=== PATIENT | female | born 1940 | race Caucasian/White ===

== ENCOUNTER → 2019-03-08 | Outpatient (CLI) | payer MEDICARE ==
--- NOTE | 2019-03-08 14:44 | BD ---
EXAMINATION TYPE: Axial Bone Density DATE OF EXAM: 03/08/2019 COMPARISON: NONE CLINICAL HISTORY: Postmenopausal female Height: 5 FT 4 IN Weight: 160 FRAX RISK QUESTIONS: RISK FACTORS HISTORY OF: Postmenopausal woman: AGE 50-52 Lost more than 2 inches in height since high school: YES Poor Health: FAIR MEDICATIONS: Thyroid Medications: YES Which medication: LEVOTHYROXINE How Long: APPRX 20 YEARS Additional Medications: LEVOTHYROXINE, CHOLESTEROL MEDS, LOSARTIN, METOPROLOL, AMLODIPINE, ALOPURINOL , BABY ASPIRIN Additional History: EXAM MEASUREMENTS: Bone mineral densitometry was performed using the [employer]. Bone mineral density as measured about the Lumbar spine is: ----- L1-L4(G/cm2): 1.219 T Score Values are as follows: ----- L2: -0.1 ----- L3: 0.8 ----- L4: 1.0 ----- L1-L4: 0.3 BASELINE Bone mineral density about the R hip (g/cm2): 0.701 Bone mineral density about the L hip (g/cm2): 0.828 T Score values are as follows: -----R Neck: -2.4 -----L Neck: -1.5 -----R Total: -2.6 -----L Total: -1.9 BASELINE IMPRESSION: Osteoporosis (T Score less than -2.5). There is increased fracture risk and therapy is usually indicated based on age. Re-Screen 1-2 years. NOTE: T-SCORE=SD OF THE YOUNG ADULT MEAN.
== END | disposition home or self-care (01) ==
LOC: RADBDWWP 12:51
PROVIDERS: ATTEND Internal Medicine
DX: M81.0 Age-related osteoporosis without current pathological fracture (principal)
CPT/HCPCS: 77080

== ENCOUNTER → 2019-10-10 | Outpatient (CLI) | payer MEDICARE ==
[~2019-10-10] MED LIST: DOBUTamine DRIP for NUC MED 500 MG in DEXTROSE/WATER 1 250ML.BAG IV ONE
--- NOTE | 2019-10-10 13:29 | ECHOS ---
STRESS ECHOCARDIOGRAM DATE OF SERVICE: 10/10/2019 INDICATIONS: Chest pain. MEDICATIONS: BASELINE HEART RATE: 75 BASELINE BLOOD PRESSURE: 173/57 MAXIMUM HEART RATE: 121 MAXIMUM BLOOD PRESSURE: 173/57 85% MPHR: 118 100% MPHR: 139 METS: MAXIMUM STAGE REACHED: TOTAL EXERCISE TIME: CLINICAL INFORMATION: The patient was given dobutamine infusion according to the standard protocol. Peak heart rate of 121 was achieved. The patient developed mild hypotension in the immediate post dobutamine infusion and subsequently blood pressure came back to the normal. The resting EKG shows normal sinus rhythm with QRS morphology suggestive of right bundle branch block pattern was noted. During dobutamine infusion, no ST-segment depression suggestive of ischemia was noted. Occasional PVCs were noted. The baseline echocardiographic images reveals normal left ventricular chamber size with normal left ventricular systolic function. At the peak dose of dobutamine infusion, normal increase in the wall thickness and contractility is noted. FINAL IMPRESSION: 1. This patient's dobutamine stress echocardiographic study is negative for stress- induced ischemia. 2. The patient developed mild hypotension at the peak dose of dobutamine infusion. 3. EKG portion of the stress test is not suggestive of ischemia. MMODL / IJN: [id number] /
== END ==
LOC: RADNMMAIN 08:45
PROVIDERS: ATTEND Internal Medicine
DX: I95.9 Hypotension, unspecified (principal); I10 Essential (primary) hypertension
CPT/HCPCS: 93351; J1250

== ENCOUNTER → 2021-08-06 | Outpatient (CLI) | payer MEDICARE ==
--- NOTE | 2021-08-07 02:02 | US ---
EXAMINATION TYPE: US carotid duplex BILAT DATE OF EXAM: 08/06/2021 COMPARISON: NONE CLINICAL HISTORY: I635.23 Bilateral carotid artery stenosis. Weakness EXAM MEASUREMENTS: RIGHT: Peak Systolic Velocity (PSV) cm/sec ----- Right CCA: 126 ----- Right ICA: 192 ----- Right ECA: 281 ICA/CCA ratio: 1.5 RIGHT: End Diastole cm/sec ----- Right CCA: 17.6 ----- Right ICA: 30.0 ----- Right ECA: 39.8 LEFT: Peak Systolic Velocity (PSV) cm/sec ----- Left CCA: 103 ----- Left ICA: 254 ----- Left ECA: 295 ICA/CCA ratio: 2.5 LEFT: End Diastole cm/sec ----- Left CCA: 14.0 ----- Left ICA: 34.5 ----- Left ECA: 53.2 VERTEBRALS (direction of flow): Right Vertebral: Antegrade Left Vertebral: Antegrade Rhythm: Normal Heterogeneous plaque bilaterally with elevated velocities bilaterally IMPRESSION: 1. Flow parameters suggestive of left internal carotid artery stenosis of 50-69%, with peak systolic velocity suggestive of greater than 70% stenosis. 2. Flow parameters suggest of no hemodynamically significant stenosis of the right internal carotid a rtery, with peak systolic velocity suggestive of 50-69% stenosis. 3. CTA of the neck could be obtained for more definitive evaluation. Criteria for Assigning % of Stenosis / Diameter reduction (Estimation based on the indirect measurements of the internal carotid artery velocities (ICA PSV). 1. Normal (no stenosis)=ICA PSV < 125 cm/s: ratio < 2.0: ICA EDV<40 cm/s. 2. Less than 50% stenosis=ICA PSV < 125 cm/s: ratio < 2.0: ICA EDV<40 cm/s. 3. 50 to 69% stenosis=ICA PSV of 125 to 230 cm/s: ration 2.0 ? 4.0: ICA EDV 40-100 cm/s. 4. Greater than 70% stenosis to near occlusion= ICA PSV > 230 cm/s: ratio > 4.0: ICA EDV > 100 cm/s. 5. Near occlusion= ICA PSV velocities may be low or undetectable: variable ratio and ICA EDV. 6. Total occlusion=unable to detect flow.
== END | disposition home or self-care (01) ==
LOC: RADUSWWP 16:06
PROVIDERS: ATTEND Internal Medicine
DX: I65.23 Occlusion and stenosis of bilateral carotid arteries (principal)
CPT/HCPCS: 93880

== ENCOUNTER → 2023-03-30 | Outpatient (CLI) | payer MEDICARE ==
--- NOTE | 2023-04-01 08:56 | CT ---
EXAMINATION TYPE: CT chest wo con DATE OF EXAM: 03/30/2023 COMPARISON: Radiograph 03/05/2023 HISTORY: 83-year-old female R91.8, prior abnormal exam- lung field TECHNIQUE: Contiguous axial scanning of the chest without IV contrast. Coronal and sagittal reconstru ctions performed. CT DLP: 195.0 mGycm Automated exposure control for dose reduction was used. FINDINGS: Bulky, enlarged, poorly defined thyroid gland. Further thyroid ultrasound evaluation can be performed . Heart upper limits of normal in size without pericardial effusion. LAD coronary artery calcifications are present. Borderline ectatic ascending aorta 3.5 cm. Moderate atherosclerotic arch calcifications. Possible mod erate or severe atherosclerotic narrowing at the origin of the left subclavian artery. Large caliber to the main right and left pulmonary arteries measuring up to 2.6 cm each suggesting un derlying pulmonary hypertension. Scattered nonenlarged mediastinal lymph nodes. Calcified AP window lymph node compatible with prior g ranulomatous disease. No thoracic lymph adenopathy by CT size criteria. There is moderate to advanced emphysematous changes especially in the upper and midlungs. Focal masslike area of consolidation posterior right lower lobe measuring up to 3.8 cm and abutting t he pleural surface. There are some associated calcifications in this area and some adjacent patchy op acity extending into the superior segment right lower lobe. A 7 mm pulmonary nodule right mid lung along the major fissure likely represents an intrafissural lym ph node. A few punctate calcific granulomas noted within the right lower lobe. No pleural effusion. Tiny hiatal hernia. Moderate to severe arthritic changes continue into the visualized upper abdominal aorta. Mild thickening of the right adrenal gland without discrete nodularity. Bones: Slightly exaggerated mid thoracic kyphosis with anterior endplate spondylosis lower thoracic s pine. IMPRESSION: 1. COPD WITH MODERATE TO ADVANCED EMPHYSEMA. PULMONARY ARTERIAL HYPERTENSION. EVIDENCE OF PRIOR GRAN ULOMATOUS DISEASE. 2. FOCAL MASSLIKE AREA OF CONSOLIDATION POSTERIOR RIGHT LOWER LOBE MEASURING 3.8 CM AND ABUTTING THE PLEURAL SURFACE. DIFFERENTIAL CONSIDERATIONS GIVEN THE PERSISTENCE INCLUDE LUNG CANCER. ATYPICAL FUN GAL/MYCOBACTERIAL INFECTIONS ARE ALSO IN THE DIFFERENTIAL. ROUNDED ATELECTASIS IS ALSO POSSIBLE BUT F ELT TO BE LESS LIKELY. CONVENTIONAL PNEUMONIA UNLIKELY GIVEN THE PERSISTENCE. CLINICALLY CORRELATE. 3. FURTHER THYROID ULTRASOUND EVALUATION FOR THE BULKY, ENLARGED, POORLY DEFINED THYROID GLAND.
== END | disposition home or self-care (01) ==
LOC: RADCTMAIN 15:45
PROVIDERS: ATTEND Internal Medicine
DX: C34.31 Malignant neoplasm of lower lobe, right bronchus or lung (principal); I27.21 Secondary pulmonary arterial hypertension; J43.9 Emphysema, unspecified; D71 Functional disorders of polymorphonuclear neutrophils; R91.8 Other nonspecific abnormal finding of lung field
CPT/HCPCS: 71250

== ENCOUNTER 2023-05-04 08:46 | Day surgery (SDC) | payer MEDICARE ==
[2023-05-04] MEDS ORDERED: ALPRAZolam 0.25 MG TAB PO PRN (09:01)
[2023-05-04] MEDS ORDERED: HYDROmorphone 0.5 MG/0.5 ML SYRINGE IVP PRN (09:01)
[2023-05-04 09:45] LABS: Mean Platelet Volume 7.6; Platelet Count 243 k/uL (150-450)
[2023-05-04 09:53] VITALS: TEMP 97.7
[2023-05-04 10:31] LABS: Prothrombin Time 10.5 sec (9.0-12.0)
--- NOTE | 2023-05-04 11:49 | XR ---
EXAMINATION TYPE: XR chest 1V portable DATE OF EXAM: 05/04/2023 COMPARISON: 03/30/2023, 03/05/2023 HISTORY: Postlung biopsy TECHNIQUE: Single frontal view of the chest is obtained. FINDINGS: No sizable pneumothorax. Diffuse emphysematous changes cardiomegaly and atherosclerotic ch terrence aorta. Mass in the right lower lobe noted. There are subsegmental changes at the right lung base most likely atelectasis or bronchiectasis. Calcified granuloma noted. Hypertrophic and degenerative changes spine. Calcifications along the medial margin of the right upper lobe likely vascular. IMPRESSION: 1. No pneumothorax. 2. Right lung mass. 3. COPD.
--- NOTE | 2023-05-04 12:30 | CT ---
EXAMINATION TYPE: CT biopsy lung RT DATE OF EXAM: 05/04/2023 COMPARISON: 03/30/2023 HISTORY: Right lung mass CT DLP: 18.53 mGycm The procedure is discussed with the patient, the risks, complications, benefits and alternatives, wer e discussed and any questions were answered. Informed consent was obtained. The patient is placed p herminio on the CT table, prepped and draped in the usual sterile fashion. Utilizing a 20-gauge core biopsy needle access into the right posterior lower lobe mass was achieved with single 20-gauge core sample obtained. Pathology confirmed adequate sample. All elements of max imal barrier technique were utilized. The patient remained stable throughout the procedure with no i mmediate postprocedural complication. IMPRESSION: 1. Successful CT guided fine needle aspiration of a right lower lobe lobe lung mass
--- NOTE | 2023-05-04 13:52 | XR ---
EXAMINATION TYPE: XR chest 1V portable DATE OF EXAM: 05/04/2023 COMPARISON: 05/04/2023 HISTORY: Postlung biopsy TECHNIQUE: Single frontal view of the chest is obtained. FINDINGS: There is no focal air space opacity, pleural effusion, or pneumothorax seen. The cardiac silhouette size is within normal limits. The osseous structures are intact. Calcified granuloma not ed in the right lower lobe lung mass. Heart is mildly enlarged with atherosclerotic change aorta. Art hropathy of the shoulder. IMPRESSION: 1. No evidence of pneumothorax. 2. Right lung mass. 3. COPD.
[2023-05-04 18:07] VITALS: RESP 16
[2023-05-04 18:10] VITALS: BP 139/67; PULSE 81
== END 2023-05-04 14:27 | disposition home or self-care (01) ==
LOC: RADPROMAIN 08:46
PROVIDERS: ATTEND Internal Medicine
DX: C34.31 Malignant neoplasm of lower lobe, right bronchus or lung (principal); J44.9 Chronic obstructive pulmonary disease, unspecified; C18.9 Malignant neoplasm of colon, unspecified; C44.90 Unspecified malignant neoplasm of skin, unspecified
CPT/HCPCS: 32408; 36415; 71045; 85049; 85610; 88305; 88342

== ENCOUNTER → 2023-07-27 | Outpatient (CLI) | payer MEDICARE ==
--- NOTE | 2023-08-03 17:33 | CT ---
EXAMINATION TYPE: CT chest wo con DATE OF EXAM: 07/27/2023 COMPARISON: 05/04/2023, PET/CT 04/10/2023 HISTORY: f/u 1 month post radiation tx CT DLP: 199.9 mGycm, Automated exposure control for dose reduction was used. CONTRAST: Performed injected with 0 mL of Isovue 300. TECHNIQUE: Axial images were obtained at 5 mm thick sections. Reconstructed images are reviewed on [employer] computer in the coronal plane. FINDINGS: Thyroid appears markedly enlarged and extends out of the field of view. This extends toward s the thoracic inlet. Correlate for goiter. Consider additional evaluation with ultrasound. There is a spiculated 2.2 x 2.4 cm mass posterior right lung. Series 3 image 6. This area was previou sly biopsied. Infiltrate extends along the medial posterior right lung and from this level more infer ior and lateral. Previous measurement 3.7 x 2.9 cm on PET/CT localization CT. Extensive emphysematous changes are present. There is benign-appearing calcification in the lateral right lung. Pneumatoceles at the left lung bas e. Some pulmonary fibrotic type changes are at the lung bases. No enlarged mediastinal or hilar adenopathy is evident. Few scattered small lymph nodes are present. The ascending aorta diameter at the level of the main pulmonary artery is 3.5 cm. The main pulmonar y artery diameter at the bifurcation is 3.4 cm. Coronary artery calcifications present. Limited CT sections are obtained through the upper abdomen. Dense calcifications within the aorta. No acute changes within the abdomen are evident. IMPRESSION: 1. Diminished size of a biopsied lung nodule posterior right lung
== END | disposition home or self-care (01) ==
LOC: RADCTMAIN 14:48
PROVIDERS: ATTEND Radiology Radiation Oncology
DX: C34.31 Malignant neoplasm of lower lobe, right bronchus or lung (principal); R91.1 Solitary pulmonary nodule
CPT/HCPCS: 71250

== ENCOUNTER → 2023-12-01 | Outpatient (CLI) | payer MEDICARE ==
--- NOTE | 2023-12-01 14:30 | CT ---
Exam: CT Chest without contrast. Date: 12/01/2023. Comparison: 07/27/2023. History: Follow-up for lung cancer. Technique: CT examination of the chest was performed without contrast. Coronal and sagittal reformats were performed. CT dose lowering techniques were used, to include: automated exposure control, adjus tment for patient size, and/or use of iterative reconstruction. FINDINGS: Mediastinum and Ignacia: There is no axillary, mediastinal or hilar lymphadenopathy. Pleural and Pericardial spaces: There are no pleural or pericardial effusions. Upper Abdomen: The visualized upper abdomen is unremarkable. Cardiovascular: There is severe vascular calcification throughout the thoracic aorta without evidence of aneurysmal dilation. Mild patchy coronary artery calcifications are seen. Lung Parenchyma and Airways: There is severe diffuse centrilobular emphysema. 3 mm right upper lobe n odule on series 4 image 18 is unchanged. There is some patchy parenchymal changes within the right lo wer lobe which are slightly more prominent than the previous examination and may relate to prior ignacio tment change. Residual or recurrent disease is difficult to entirely exclude. There is some scattered bronchial wall thickening within the right middle lobe also noted. Bones: No fracture or aggressive osseous lesion. IMPRESSION: 1. Increasing patchy parenchymal changes within the right lower lobe may relate to prior treatment ch anges. Clinical correlation is recommended. Underlying disease is difficult to exclude. Follow-up acc ording to tumor protocol. 2. Severe emphysema. 3. Additional findings as above.
== END | disposition home or self-care (01) ==
LOC: RADCTMAIN 12:35
PROVIDERS: ATTEND Radiology Radiation Oncology
DX: J43.2 Centrilobular emphysema (principal); C34.31 Malignant neoplasm of lower lobe, right bronchus or lung; J98.09 Other diseases of bronchus, not elsewhere classified; I25.10 Atherosclerotic heart disease of native coronary artery without angina pectoris; R91.1 Solitary pulmonary nodule; Z87.891 Personal history of nicotine dependence
CPT/HCPCS: 71250

== ENCOUNTER → 2023-12-10 | Outpatient (CLI) | payer MEDICARE ==
--- NOTE | 2023-12-10 11:46 | US ---
EXAMINATION TYPE: US kidneys/renal and bladder DATE OF EXAM: 12/10/2023 COMPARISON: CT 2012, CT/PET 04/10/2023 CLINICAL INDICATION: Female, 83 years old with history of N18.30 CHRONIC KIDNEY DISEASE, STAGE 3 UNSP ECIFIED; CKD, hx of renal cyst drained in 2012. EXAM MEASUREMENTS: Right Kidney: 9.8 x 4.9 x 4.0 cm Left Kidney: 10.8 x 4.3 x 4.9 cm Right Kidney: -Complex area seen upper pole: 2.4 x 1.3 x 1.4 cm. Two anechoic areas seen, larger is at mid pole: 1.8 x 1.7 x 1.5 cm. *Renal pelvis appears prominent post void. Left Kidney: -Complex area seen upper pole: 6.7 x 4.3 x 4.5 cm. -Largest anechoic area seen lower pole: 2.2 x 2.8 x 2.5 cm., additional subcentimeter anechoic areas seen. *Renal pelvis appears prominent post void. Bladder: Appears wnl Bilateral Jets seen: Yes IMPRESSION: 1. No evidence for obstructive uropathy. 2. Bilateral renal cysts. Some renal cysts appear more complicated. Consider evaluation with MRI dania al mass protocol for complete evaluation.
== END | disposition home or self-care (01) ==
LOC: RADUSWWP 10:17
PROVIDERS: ATTEND Family Medicine
DX: N28.1 Cyst of kidney, acquired (principal); N18.30 Chronic kidney disease, stage 3 unspecified
CPT/HCPCS: 76770

== ENCOUNTER → 2023-12-16 | Outpatient (CLI) | payer MEDICARE | END | disposition home or self-care (01) | LOC: LABWHC1 10:37 | PROVIDERS: ATTEND Family Medicine | DX: R73.01 Impaired fasting glucose (principal) | CPT/HCPCS: 36415; 83036 ==

== ENCOUNTER → 2024-01-04 | Outpatient (CLI) | payer MEDICARE ==
--- NOTE | 2024-01-05 11:54 | MR ---
EXAMINATION TYPE: MR kidney wo/w con DATE OF EXAM: 01/04/2024 2:50 PM CLINICAL INDICATION:Female, 83 years old with history of C44.91 N28.1, Renal cyst, Hx of lung and col on cancer COMPARISON: Ultrasound 12/10/2023, PET/CT 04/10/2023 TECHNIQUE: Multiplanar multi-sequence imaging was performed without contrast. Post contrast imaging was performed. Post IV contrast subtraction images were also submitted for review. IV Contrast: 7 cc Gadobutrol FINDINGS: LOWER CHEST: No gross irregularity. ABDOMEN Liver: No evidence for hepatic steatosis or cirrhosis. Signal dropout on chemical shift in phase imag ing. No suspicious enhancement identified. Gallbladder and Bile ducts: No evidence for ductal dilation, or biliary stricture or evidence of chol edocholithiasis. The gallbladder is within normal limits. Pancreas: No ductal dilation. No evidence for solid mass. Spleen: Normal for size. Signal dropout on chemical shift in phase imaging. Adrenal glands: Unremarkable. Kidneys: 1. No evidence for obstructive uropathy. 2. Multiple renal cysts bilaterally some which are high T2 signal on the right measuring up to 17 mm . Other cysts including a majority of the left renal cyst of lower T2 signal. Measuring up to 5.3 cm on the left hand 1.3 cm on the right. T1-weighted imaging abnormally lower density renal cysts have l ayering high T1 signal on the left as well as a cyst on the right. High T1 signal suggests proteinace ous contents/hemorrhage. 3. No suspicious solid renal neoplasms identified. Stomach and Bowel: No evidence for bowel wall thickening or evidence for obstruction. Retroperitoneum/Peritoneum: No evidence of pneumoperitoneum or free fluid. Vasculature: No aortic aneurysm. Musculoskeletal: The osseous structures appear intact. Lymph Nodes: No gross evidence for lymphadenopathy. Abdominal wall: Unremarkable. IMPRESSION: 1. 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 No suspicious solid renal neoplasms. 2. Iron deposition in the liver and spleen.
== END | disposition home or self-care (01) ==
LOC: RADMRIMAIN 12:57
PROVIDERS: ATTEND Family Medicine
DX: N28.1 Cyst of kidney, acquired (principal); C44.91 Basal cell carcinoma of skin, unspecified; K76.89 Other specified diseases of liver; D73.89 Other diseases of spleen; Z85.038 Personal history of other malignant neoplasm of large intestine; Z85.118 Personal history of other malignant neoplasm of bronchus and lung
CPT/HCPCS: 74183; A9585

== ENCOUNTER → 2024-04-04 | Outpatient (CLI) | payer MEDICARE ==
--- NOTE | 2024-04-04 12:29 | CT ---
EXAMINATION TYPE: CT chest wo con CT DLP: 229.4 mGycm, Automated exposure control for dose reduction was used. DATE OF EXAM: 04/04/2024 12:15 PM COMPARISON: CT chest 12/01/2023, 07/27/2023, 03/30/2023, PET/CT 04/10/2023. CLINICAL INDICATION:Female, 84 years old with history of C34.31 MALIGNANT NEOPLASM OF LOWER LOBE, RIG HT BRO; PHH, f/u lung cancer TECHNIQUE: Multiple axial images were obtained through the chest without IV contrast. Lack of IV or o ral contrast limits evaluation of solid and hollow organ viscera. . Coronal and sagittal reformats re viewed. FINDINGS: LUNGS/ PLEURA: [id number] diffuse centrilobular emphysematous changes. This is most prominent within the bilateral upper lobes with right greater than left. No pneumothorax or pleural effusion. Similar patchy parenchymal changes within the right lower lobe from most recent examination but have increased from previous exams. May relate to prior treatment change however residual or recurrent di sease is difficult to entirely exclude. Scattered bronchial wall thickening within the right middle l obe redemonstrated. Scattered calcified granulomas redemonstrated. This is most prominent within that parenchymal opacity within the right lower lobe. Additional parenchymal nodular changes identified w ithin the right middle lobe with similar appearance. Stable right upper lobe 3 mm pulmonary nodule (s eries 4, image 23). No new definitive pulmonary nodules. AIRWAY: Patent and unremarkable.. HEART: Mildly enlarged. No pericardial effusion. MEDIASTINUM: No evidence of adenopathy. Few calcified lymph nodes identified. VASCULATURE: No aortic aneurysm. Severe vascular calcification throughout the visualized aorta exten ding into the abdomen. Moderate suggests a stenosis of the origin of the left subclavian artery. Mode rate stenosis at the origin of the celiac axis and SMA. Mild/moderate stenosis origin of bilateral re nal artery suggested. Dilated main pulmonary artery measuring up to 3.5 cm which can be seen in the p ulmonary arterial hypertension. Moderate coronary arterial calcifications. MUSCULOSKELETAL: No acute osseous abnormalities. No aggressive osseous lesion. Mild multilevel degene rative disease. SOFT TISSUES/LYMPH NODES: Unremarkable. LOWER NECK: Enlarged thyroid gland redemonstrated. UPPER ABDOMEN: Left renal superior pole 1.8 cm cyst. IMPRESSION: 1. Similar patchy parenchymal changes within the right lower lobe which may relate to prior treatment changes. Clinical correlation is again recommended. Cannot exclude recurrent/residual disease. Kurt nued surveillance is recommended. 2. Moderate to severe COPD changes redemonstrated. 3. Thyromegaly. 4. Severe atherosclerotic changes of the aorta is branches. 5. Sequelae of prior granulomatous disease.
== END | disposition home or self-care (01) ==
LOC: RADCTMAIN 11:55
PROVIDERS: ATTEND Radiology Radiation Oncology
DX: C34.31 Malignant neoplasm of lower lobe, right bronchus or lung (principal); J44.9 Chronic obstructive pulmonary disease, unspecified; I70.0 Atherosclerosis of aorta
CPT/HCPCS: 71250

== ENCOUNTER 2024-08-04 10:07 | Emergency (ER) | payer MEDICARE ==
[2024-08-04 10:16] VITALS: TEMP 97.6
--- NOTE | 2024-08-04 10:30 | ED ---
Abdominal Pain HPI - General Chief Complaint: Abdominal Pain Stated Complaint: Back pain Time Seen by Provider: 08/04/24 10:17 Source: patient, RN notes reviewed Mode of arrival: ambulatory Limitations: no limitations - History of Present Illness Initial Comments: This is a 84-year-old female with history of colon cancer with bowel resection and COPD complaining of right flank pain (8 out of 10) x 4 days. Patient states pain has since migrated to the right abdomen x 3 days. Patient states constant pain is worse with movement and deep inhalation. Patient endorses history of bowel obstruction with her last normal bowel movement occurring yesterday. Endorses use of Tylenol with no relief. Denies fever, chills, fatigue, body aches, chest pain, dyspnea, N/V/D, dizziness, urinary symptoms, hematuria. Endorses history of appendectomy but still retains her gallbladder. MD Complaint: abdominal pain, flank pain Onset/Timin -: days(s) Location: R flank Migration to: RUQ Severity scale (1-10): 8 Quality: stabbing Consistency: constant Worsens With: movement Associated Symptoms: constipation Treatments Prior to Arrival: other (Tylenol) - Related Data Home Medications Medication Instructions Recorded Confirmed Aspirin 81 mg PO DAILY 07/26/15 05/04/23 Levothyroxine Sodium [Synthroid] 25 mcg PO DAILY 07/26/15 05/04/23 Metoprolol Succinate [Toprol XL] 50 mg PO DAILY 07/26/15 05/04/23 Multivit-Min/FA/Lycopen/Lutein 1 tab PO DAILY 07/26/15 05/04/23 [Centrum Silver Tablet] Simvastatin [Zocor] 20 mg PO HS 07/26/15 05/04/23 amLODIPine BESYLATE [Norvasc] 10 mg PO DAILY 07/26/15 05/04/23 Biotin [Svlg-Epui-Wngrb] 10,000 mcg PO DAILY 04/26/23 05/04/23 Losartan [Cozaar] 100 mg PO DAILY 04/26/23 05/04/23 Spironolactone 25 mg PO DAILY 04/26/23 05/04/23 allopurinoL 100 mg PO DAILY 04/26/23 05/04/23 hydrOXYzine HCL 10 mg PO HS PRN 05/04/23 05/04/23 Previous Rx's Medication Instructions Recorded Azithromycin [Zithromax Z Pack] 250 tab PO DAILY #4 tab 08/04/24 Allergies Allergy/AdvReac Type Severity Reaction Status Date / Time Penicillins Allergy Anaphylaxis Verified 08/04/24 10:12 codeine AdvReac Nausea & Verified 08/04/24 10:12 Vomiting Review of Systems ROS Statement: Those systems with pertinent positive or pertinent negative responses have been documented in the HPI. ROS Other: All systems not noted in ROS Statement are negative. Past Medical History Past Medical History: Cancer, COPD, Hyperlipidemia, Hypertension, Thyroid Disorder Additional Past Medical History / Comment(s): colon cancer 2000 precancereous polyp, beginning stages of COPD History of Any Multi-Drug Resistant Organisms: None Reported Past Surgical History: Appendectomy, Bowel Resection, Joint Replacement, Orthopedic Surgery, Tonsillectomy Additional Past Surgical History / Comment(s): Hemorrhoidectomy, drainage of a kidney abscess, R eye catatract surgery, R knee replacement, MOO on left ear for skin CA Past Anesthesia/Blood Transfusion Reactions: No Reported Reaction Past Psychological History: Anxiety Smoking Status: Former smoker Past Alcohol Use History: Occasional Past Drug Use History: None Reported - Past Family History Mother Family Medical History: Unable to Obtain Additional Family Medical History / Comment(s): peritonitis Father Family Medical History: Cancer Additional Family Medical History / Comment(s): lung Brother(s) Family Medical History: Cancer Additional Family Medical History / Comment(s): lung General Exam Limitations: no limitations General appearance: alert, in no apparent distress Head exam: Present: atraumatic, normocephalic, normal inspection Eye exam: Present: normal appearance, PERRL, EOMI. Absent: scleral icterus, conjunctival injection, periorbital swelling ENT exam: Present: normal exam, mucous membranes moist Neck exam: Present: normal inspection. Absent: tenderness, meningismus, lymphadenopathy Respiratory exam: Present: decreased breath sounds. Absent: respiratory distress, wheezes, rales, rhonchi, stridor Cardiovascular Exam: Present: regular rate, normal rhythm, normal heart sounds. Absent: systolic murmur, diastolic murmur, rubs, gallop, clicks GI/Abdominal exam: Present: soft, tenderness (Right upper and right lower quadrant tenderness and tympanic tenderness. Negative McBurney's point. Positive Rosa sign), guarding (Voluntary guarding of right upper quadrant with palpation), diminished bowel sounds. Absent: distended, rebound, rigid Extremities exam: Present: normal inspection, full ROM, normal capillary refill. Absent: tenderness, pedal edema, joint swelling, calf tenderness Back exam: Present: normal inspection. Absent: CVA tenderness (R), CVA tenderness (L) Neurological exam: Present: alert, oriented X3, CN II-XII intact Psychiatric exam: Present: normal affect, normal mood Skin exam: Present: warm, dry, intact, normal color. Absent: rash Course Vital Signs 08/04/24 08/04/24 08/04/24 10:12 12:19 15:59 Temperature 97.6 F Pulse Rate 107 H 71 75 Respiratory 18 20 18 Rate Blood Pressure 169/65 168/63 146/63 O2 Sat by Pulse 93 L 95 95 Oximetry Medical Decision Making - Medical Decision Making Was pt. sent in by a medical professional or institution (, PA, BEEF SPECIALIST, urgent care, hospital, or jail...) When possible be specific @ -No Did you speak to anyone other than the patient for history (EMS, parent, family, police, friend...)? What history was obtained from this source @ -No Did you review nursing and triage notes (agree or disagree)? Why? @ -I reviewed and agree with nursing and triage notes Were old charts reviewed (outside hosp., previous admission, EMS record, old EKG, old radiological studies, urgent care reports/EKG's, jail records)? Report findings @ -No old charts were reviewed Differential Diagnosis (chest pain, altered mental status, abdominal pain women, abdominal pain men, vaginal bleeding, weakness, fever, dyspnea, syncope, headache, dizziness, GI bleed, back pain, seizure, CVA, palpatations, mental health, musculoskeletal)? @ -Differential Abdominal Pain Women: Appendicitis, Cholecystitis, diverticulosis, ischemic bowel, pancreatitis, hepatitis, UTI, gastroenteritis, AAA, incarcerated hernia, bowel obstruction, constipation, inflammatory bowel, hepatitis, peptic ulcer disease, splenic infarction, perforated viscus, vulvitis, ovarian torsion, PID, kidney stone, placenta abruption, this is not meant to be an all-inclusive list EKG interpreted by me (3pts min.). @ -Sinus rhythm with right bundle branch block. Septal inverted T waves unchanged when compared to EKG in 2019. ventricular rate 82 bpm, MARIA E 105 ms, QRS duration 127 milliseconds, QTc 405 ms. X-rays interpreted by me (1pt min.). @ -None done CT interpreted by me (1pt min.). @ -Abdominal CT shows consolidation of right lower lobe of lung and mass of right adnexa. U/S interpreted by me (1pt. min.). @ -Doppler ultrasound of adnexa revealed simple cysts, seen most of right ovary without loss of perfusion What testing was considered but not performed or refused? (CT, X-rays, U/S, labs)? Why? @ -None What meds were considered but not given or refused? Why? @ -None Did you discuss the management of the patient with other professionals (professionals i.e. , PA, BEEF SPECIALIST, lab, RT, psych nurse, oncology social worker, library circulation technician, teacher, chief school finance officer, director of casework)? Give summary @ -No Was smoking cessation discussed for >3mins.? @ -No Was critical care preformed (if so, how long)? @ -No Were there social determinants of health that impacted care today? How? (Homelessness, low income, unemployed, alcoholism, drug addiction, transportation, low edu. Level, literacy, decrease access to med. care, usp, rehab)? @ -No Was there de-escalation of care discussed even if they declined (Discuss DNR or withdrawal of care, Hospice)? DNR status @ -No What co-morbidities impacted this encounter? (DM, HTN, Smoking, COPD, CAD, Cancer, CVA, ARF, Chemo, Hep., AIDS, mental health diagnosis, sleep apnea, morbid obesity)? @ -Colon cancer, COPD Was patient admitted / discharged? Hospital course, mention meds given and route, prescriptions, significant lab abnormalities, going to OR and other pertinent info. @ -Discharge. Abdominal CT showing pneumonia and mass of adnexa. Lab work, UA and EKG were largely unremarkable. IV azithromycin provided. Ultrasound shows no risk of ovarian torsion. P.o. azithromycin sent to pharmacy. Advised follow-up with primary care if abdominal pain persists. Undiagnosed new problem with uncertain prognosis? @ -No Drug Therapy requiring intensive monitoring for toxicity (Heparin, Nitro, Insulin, Cardizem)? @ -No Were any procedures done? @ -No Diagnosis/symptom? @ -Pneumonia, ovarian cyst Acute, or Chronic, or Acute on Chronic? @ -Acute Uncomplicated (without systemic symptoms) or Complicated (systemic symptoms)? @ -Complicated Side effects of treatment? @ -No Exacerbation, Progression, or Severe Exacerbation? @ -No Poses a threat to life or bodily function? How? (Chest pain, USA, GA, pneumonia, PE, COPD, DKA, ARF, appy, cholecystitis, CVA, Diverticulitis, Homicidal, Suicid al, threat to staff... and all critical care pts) @ -Pneumonia - Lab Data Result diagrams: 08/04/24 10:34 08/04/24 10:34 Lab Results 08/04/24 08/04/24 08/04/24 Range/Units 10:34 10:34 10:34 WBC 6.1 (3.8-10.6) k/uL RBC 4.04 (3.80-5.40) m/uL Hgb 11.6 (11.4-16.0) gm/dL Hct 35.5 (34.0-46.0) % MCV 88.0 (80.0-100.0) fL MCH 28.8 (25.0-35.0) pg MCHC 32.7 (31.0-37.0) g/dL RDW 13.4 (11.5-15.5) % Plt Count 241 (150-450) k/uL MPV 7.2 Neutrophils % 67 % Lymphocytes % 19 % Monocytes % 7 % Eosinophils % 5 % Basophils % 1 % Neutrophils # 4.1 (1.3-7.7) k/uL Lymphocytes # 1.2 (1.0-4.8) k/uL Monocytes # 0.4 (0-1.0) k/uL Eosinophils # 0.3 (0-0.7) k/uL Basophils # 0.0 (0-0.2) k/uL PT 11.1 (10.0-12.5) sec INR 1.0 (<1.2) APTT 23.0 (22.0-30.0) sec Sodium (137-145) mmol/L Potassium (3.5-5.1) mmol/L Chloride (98-107) mmol/L Carbon Dioxide (22-30) mmol/L Anion Gap mmol/L BUN (7-17) mg/dL Creatinine (0.52-1.04) mg/dL Est GFR (CKD-EPI)AfAm (>60 ml/min/1.73 sqM) Est GFR (CKD-EPI)NonAf (>60 ml/min/1.73 sqM) Glucose (74-99) mg/dL Plasma Lactic Acid Shaun (0.7-2.0) mmol/L Calcium (8.4-10.2) mg/dL Total Bilirubin (0.2-1.3) mg/dL AST (14-36) U/L ALT (4-34) U/L Alkaline Phosphatase (38-126) U/L Troponin I (0.000-0.034) ng/mL Total Protein (6.3-8.2) g/dL Albumin (3.5-5.0) g/dL Amylase (30-110) U/L Lipase (23-300) U/L Urine Color Colorless Urine Appearance Clear (Clear) Urine pH 6.5 (5.0-8.0) Ur Specific Hudson 1.019 (1.001-1.035) Urine Protein Trace H (Negative) Urine Glucose (UA) Negative (Negative) Urine Ketones Negative (Negative) Urine Blood Negative (Negative) Urine Nitrite Negative (Negative) Urine Bilirubin Negative (Negative) Urine Urobilinogen <2.0 (<2.0) mg/dL Ur Leukocyte Esterase Negative (Negative) 08/04/24 08/04/24 08/04/24 Range/Units 10:34 10:34 11:29 WBC (3.8-10.6) k/uL RBC (3.80-5.40) m/uL Hgb (11.4-16.0) gm/dL Hct (34.0-46.0) % MCV (80.0-100.0) fL MCH (25.0-35.0) pg MCHC (31.0-37.0) g/dL RDW (11.5-15.5) % Plt Count (150-450) k/uL MPV Neutrophils % % Lymphocytes % % Monocytes % % Eosinophils % % Basophils % % Neutrophils # (1.3-7.7) k/uL Lymphocytes # (1.0-4.8) k/uL Monocytes # (0-1.0) k/uL Eosinophils # (0-0.7) k/uL Basophils # (0-0.2) k/uL PT (10.0-12.5) sec INR (<1.2) APTT (22.0-30.0) sec Sodium 142 (137-145) mmol/L Potassium 4.4 (3.5-5.1) mmol/L Chloride 106 (98-107) mmol/L Carbon Dioxide 27 (22-30) mmol/L Anion Gap 9 mmol/L BUN 31 H (7-17) mg/dL Creatinine 1.04 (0.52-1.04) mg/dL Est GFR (CKD-EPI)AfAm 56 (>60 ml/min/1.73 sqM) Est GFR (CKD-EPI)NonAf 49 (>60 ml/min/1.73 sqM) Glucose 132 H (74-99) mg/dL Plasma Lactic Acid Shaun 2.0 (0.7-2.0) mmol/L Calcium 9.5 (8.4-10.2) mg/dL Total Bilirubin 0.5 (0.2-1.3) mg/dL AST 33 (14-36) U/L ALT 21 (4-34) U/L Alkaline Phosphatase 86 (38-126) U/L Troponin I <0.012 (0.000-0.034) ng/mL Total Protein 7.5 (6.3-8.2) g/dL Albumin 4.4 (3.5-5.0) g/dL Amylase 84 (30-110) U/L Lipase 239 (23-300) U/L Urine Color Urine Appearance (Clear) Urine pH (5.0-8.0) Ur Specific Hudson (1.001-1.035) Urine Protein (Negative) Urine Glucose (UA) (Negative) Urine Ketones (Negative) Urine Blood (Negative) Urine Nitrite (Negative) Urine Bilirubin (Negative) Urine Urobilinogen (<2.0) mg/dL Ur Leukocyte Esterase (Negative) Disposition Clinical Impression: Pneumonia, Ovarian cyst Disposition: HOME SELF-CARE Condition: Good Instructions (If sedation given, give patient instructions): Ovarian Cyst (ED), Community Acquired Pneumonia (ED) Prescriptions: Azithromycin [Zithromax Z Pack] 250 tab PO DAILY #4 tab Is patient prescribed a controlled substance at d/c from ED?: No Referrals: Titus Hernandez MD [Primary Care Provider] - 1-2 days Time of Disposition: 15:12
[2024-08-04] MEDS: KETOROLAC 15 MG/ML 1 ML VIAL IVP STA (10:46)
[2024-08-04 11:04] LABS: Basophils % (A) 1 %; Eosinophils # (A) 0.3 k/uL (0-0.7); Eosinophils % (A) 5 %; HCT 35.5 % (34.0-46.0); HGB 11.6 gm/dL (11.4-16.0); Lymphocytes # (A) 1.2 k/uL (1.0-4.8); Lymphocytes % (A) 19 %; MCH 28.8 pg (25.0-35.0); MCHC 32.7 g/dL (31.0-37.0); Mean Platelet Volume 7.2; Monocytes # (A) 0.4 k/uL (0-1.0); Monocytes % (A) 7 %; Neutrophils # (A) 4.1 k/uL (1.3-7.7); Neutrophils % (A) 67 %; Platelet Count 241 k/uL (150-450); RBC 4.04 m/uL (3.80-5.40); RDW 13.4 % (11.5-15.5); WBC 6.1 k/uL (3.8-10.6)
[2024-08-04 11:07] LABS: ALT 21 U/L (4-34); AST 33 U/L (14-36); African American GFR (CKD) 56 (>60 ml/min/1.73 sqM); Albumin 4.4 g/dL (3.5-5.0); Alkaline Phosphatase 86 U/L (38-126); Amylase 84 U/L (30-110); Anion Gap 9 mmol/L; Blood Urea Nitrogen 31 mg/dL (7-17); Calcium 9.5 mg/dL (8.4-10.2); Carbon Dioxide 27 mmol/L (22-30); Chloride 106 mmol/L (98-107); Glucose 132 mg/dL (74-99); Lipase 239 U/L (23-300); Non-African American GFR(CKD) 49 (>60 ml/min/1.73 sqM); Potassium 4.4 mmol/L (3.5-5.1); Sodium 142 mmol/L (137-145); Total Bilirubin 0.5 mg/dL (0.2-1.3); Total Protein 7.5 g/dL (6.3-8.2)
[2024-08-04 11:08] LABS: Prothrombin Time 11.1 sec (10.0-12.5)
--- NOTE | 2024-08-04 12:15 | CT ---
EXAMINATION TYPE: CT abdomen pelvis w con DATE OF EXAM: 08/04/2024 COMPARISON: 08/28/2013 CLINICAL INDICATION: Female, 84 years old with history of Right abdominal/flank pain; PHH, Right abdo samuel/flank pain. history of colon CA TECHNIQUE: Performed without Oral Contrast and with IV Contrast, patient injected with 100 mL of Isovue 300. CT DLP: 655.[address] CTDI: mGy Automated exposure control for dose reduction was used. FINDINGS: There is a partially consolidated airspace infiltrate in the right lower lobe likely indicating acute pneumonia. The left lung base is clear. The gallbladder is normal without distention, wall thickening, pericholecystic fluid or gallstones. T here is no biliary ductal dilatation. There is no focal mass or organomegaly involving the liver, pancreas, spleen or adrenal glands. There is no solid renal mass or hydronephrosis and there is homogeneous contrast enhancement of the r enal parenchyma. There are multiple small simple cortical cysts of the kidneys. The caliber the abdom inal aorta is normal is no retroperitoneal adenopathy or hemorrhage. There is marked arteriosclerotic calcification of the abdominal aorta and iliac arteries. There is a small umbilical hernia containing nonstrangulated nonobstructing bowel loops. There is mar ked stool within the colon. There is marked diverticulosis of the colon without CT evidence of acute diverticulitis. There are postsurgical changes within the cecum. There is a 3.4 cm predominantly fluid-filled cystic mass in the right adnexa. In a patient of this ag e group further evaluation is warranted with either pelvic ultrasound or MRI of the pelvis. There is no pelvic adenopathy, abscess or free fluid in. No focal osseous lesions are seen. There is no free intraperitoneal air or fluid. No pelvic mass, free fluid, abscess or adenopathy. The osseous structures and soft tissues are intact. IMPRESSION: 1. Probable right lower lobe pneumonia. 2. Moderate to marked cardiomegaly. 3. Small periumbilical hernia containing nonobstructed or strangulated bowel loops. Large amount of s tool within the colon and marked diverticulosis without CT evidence of diverticulitis. 4. 3.4 cm cystic mass of the right adnexa and further evaluation is warranted in a patient of this ag e group. No significant abnormality seen. [facility], , 08/04/2024 12:13 PM
[2024-08-04 12:56] LABS: Appearance,Urine Clear (Clear); Bilirubin,Urine Negative (Negative); Blood,Urine Negative (Negative); Color,Urine Colorless; Glucose,Urine (UA) Negative (Negative); Ketones,Urine Negative (Negative); Leukocyte Esterase,Urine Negative (Negative); Nitrite,Urine Negative (Negative); PH, Urine 6.5 (5.0-8.0); Protein,Urine Trace (Negative); Specific Gravity,Urine 1.019 (1.001-1.035); Urobilinogen,Urine <2.0 mg/dL (<2.0)
[2024-08-04] MEDS: AZITHROMYCIN 500 MG in SODIUM CHLORIDE 0.9% 250 ML IVPB STA (13:05)
--- NOTE | 2024-08-04 15:00 | US ---
EXAMINATION TYPE: US pelvic complete DATE OF EXAM: 08/04/2024 COMPARISON: CT same day CLINICAL INDICATION: Female, 84 years old with history of Rule out right adnexal torsion due to mass; Right pelvic pain. cystic lesion visualized on CT TECHNIQUE: Transabdominal (TA). Transabdominal grayscale sonographic images of the pelvis were acquired. Doppler imaging: Color Doppler Images were obtained. Spectral doppler images were obtained. FINDINGS: Date of LMP: unknown EXAM MEASUREMENTS: Right Ovary: 4.1 x 3.4 x 3.9 cm Left Ovary: unable to visualize 1. Uterus: Obscured by overlying bowel gas 2. Endometrium: Obscured by overlying bowel gas 3. Right Ovary: little to no ovarian tissue noted. cystic area = 3.4 x 3.0 x 3.5cm 4. Left Ovary: Obscured by overlying bowel gas Spectral, color and waveform doppler imaging shows good arterial and venous flow within the right o vary; there is no evidence for ovarian torsion. 5. Bilateral Adnexa: appears wnl 6. Posterior cul-de-sac: wnl IMPRESSION: 1. Appropriate arterial and venous waveforms to the right ovary. 2. Right ovarian simple appearing cyst measuring up to 3.5 cm making up a majority of the right ovar y. [facility], , 08/04/2024 2:57 PM
[2024-08-04 16:00] VITALS: BP 146/63; PULSE 75; RESP 18
== END 2024-08-04 16:00 | disposition home or self-care (01) ==
LOC: EC 10:07
DX: J18.9 Pneumonia, unspecified organism (principal); N83.201 Unspecified ovarian cyst, right side; Z87.891 Personal history of nicotine dependence; Z88.0 Allergy status to penicillin; Z88.5 Allergy status to narcotic agent
CPT/HCPCS: 36415; 93005; 80053; 82150; 83605; 83690; 84484; 85025; 85610; 85730; 81003; 93976; 76856; 74177; 99284; 96365; 96375; J0456; J1885; Q9967

== ENCOUNTER → 2024-10-02 | Outpatient (CLI) | payer MEDICARE ==
--- NOTE | 2024-10-02 15:15 | CT ---
EXAMINATION TYPE: CT chest wo con DATE OF EXAM: 10/02/2024 12:18 PM COMPARISON: None. 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 Reconstructed images are reviewed on [employer] computer in the coronal plane. Contrast used: mL of , (none if empty) Oral contrast used: (none if empty) CT DLP: 225.7 mGycm, Automated exposure control for dose reduction was used. FINDINGS: Thyroid is enlarged. There is an ill-defined hypodensity within the right lobe thyroid. Consider foll ow-up with ultrasound. Moderate to advanced emphysematous changes are present greater on the right. There is a consolidation with air bronchograms in the right infrahilar region. This may not extend to wards the periphery as far as previous otherwise appears similar. There is a calcification in the right middle lobe near the lung base. No enlarged mediastinal or hilar adenopathy is evident. The ascending aorta diameter at the level o f the main pulmonary artery is 3.4 cm. The main pulmonary artery diameter at the bifurcation is 3.5 cm. Mild coronary artery calcifications present. Limited CT sections are obtained through the upper abdomen. There is a superior left renal cyst measu ring 3.3 cm transverse IMPRESSION: 1. Right lower lung mass can correlate with the patient's reported neoplasm. This may be slightly sma ller than comparison. 2. Thyromegaly. This could be further evaluated with ultrasound. 3. Moderately advanced emphysema [facility], , 10/02/2024 3:13 PM
== END | disposition home or self-care (01) ==
LOC: RADCTMAIN 11:34
PROVIDERS: ATTEND Radiology Radiation Oncology
DX: C34.31 Malignant neoplasm of lower lobe, right bronchus or lung (principal); Z87.891 Personal history of nicotine dependence; J43.9 Emphysema, unspecified; N28.1 Cyst of kidney, acquired
CPT/HCPCS: 71250

== ENCOUNTER → 2025-04-09 | Outpatient (CLI) | payer MEDICARE ==
--- NOTE | 2025-04-09 13:27 | CT ---
EXAMINATION TYPE: CT chest wo con CT DLP: 213 mGycm, Automated exposure control for dose reduction was used. DATE OF EXAM: 04/09/2025 1:16 PM COMPARISON: Multiple CT chest with most recent 10/02/2024. CLINICAL INDICATION:Female, 85 years old with history of C34.31 MALIGNANT NEOPLASM OF LOWER LOBE, RIG HT BRO; PHH, hx of lung CA, cleared 6 mo ago. F/U today TECHNIQUE: Multiple axial images were obtained through the chest without IV contrast. Lack of IV or o ral contrast limits evaluation of solid and hollow organ viscera. . Coronal and sagittal reformats re viewed. FINDINGS: LUNGS/ PLEURA: [id number] diffuse centrilobular emphysematous changes. This is most prominent within the bilateral upper lobes with right greater than left. No pneumothorax or pleural effusion. Similar patchy consolidative parenchymal changes within the right lower lobe from prior exam. Measur es grossly 5.2 x 4.1 cm. Scattered bronchial wall thickening within the right middle lobe redemonstra sharon. Scattered calcified granulomas redemonstrated. Additional unchanged parenchymal nodular changes identified within the right middle lobe. Stable right upper lobe 3 mm pulmonary nodule (series 4, emre ge 21). No new definitive pulmonary nodules. AIRWAY: Patent and unremarkable.. HEART: Mildly enlarged. No pericardial effusion. MEDIASTINUM: No evidence of adenopathy. Few calcified lymph nodes identified. VASCULATURE: No aortic aneurysm. Severe vascular calcification throughout the visualized aorta exten ding into the abdomen. Moderate suggested stenosis of the origin of the left subclavian artery. Moder ate stenosis at the origin of the celiac axis and SMA. Mild/moderate stenosis origin of bilateral dania al artery suggested. Dilated main pulmonary artery measuring up to 3.1 cm which can be seen in the pu lmonary arterial hypertension. Moderate coronary arterial calcifications. MUSCULOSKELETAL: No acute osseous abnormalities. No aggressive osseous lesion. Mild multilevel degene rative disease. SOFT TISSUES/LYMPH NODES: Unremarkable. LOWER NECK: Enlarged thyroid gland redemonstrated. UPPER ABDOMEN: Left renal superior pole 5.2 cm simple appearing cyst. No follow-up recommended. IMPRESSION: 1. Similar patchy parenchymal changes within the right lower lobe which may relate to prior treatment changes. Couple of stable pulmonary nodules within the right lung. Cannot exclude recurrent/residual disease. Continued surveillance is recommended with consideration for PET/CT. 2. Moderate to severe COPD changes redemonstrated. 3. Thyromegaly. 4. Severe atherosclerotic changes of the aorta is branches. 5. Sequelae of prior granulomatous disease. [facility], , 04/09/2025 1:24 PM
== END | disposition home or self-care (01) ==
LOC: RADCTMAIN 12:57
PROVIDERS: ATTEND Radiology Radiation Oncology
DX: C34.31 Malignant neoplasm of lower lobe, right bronchus or lung (principal); J44.9 Chronic obstructive pulmonary disease, unspecified; I70.0 Atherosclerosis of aorta; E01.0 Iodine-deficiency related diffuse (endemic) goiter; R91.8 Other nonspecific abnormal finding of lung field; Z87.891 Personal history of nicotine dependence
CPT/HCPCS: 71250